=== PATIENT | female | born 1960 | race African-American/Black ===

== ENCOUNTER 2016-07-16 19:58 | Emergency (ER) | payer OTHER ==
[~2016-07-16] VITALS: Ht 154.9 cm; Wt 75.3 kg
[2016-07-16 20:08] VITALS: BP 152/94
[2016-07-16] MEDS ORDERED: DIPHENHYDRAMINE 25 MG CAPSULE PO ONE (20:30)
[2016-07-16] MEDS ORDERED: DEXAMETHASONE 4 MG/ML, 1ML PO ONE (21:00)
[2016-07-16] MEDS ORDERED: DIPHENHYDRAMINE 25 MG CAPSULE ONE (21:40)
[2016-07-16] MEDS ORDERED: DEXAMETHASONE 4 MG TABLET ONE (21:41)
== END 2016-07-16 22:43 | disposition home or self-care (01) ==
LOC: ED 22:37
DX: T78.3XXA Angioneurotic edema, initial encounter (principal); W57.XXXA Bitten or stung by nonvenomous insect and other nonvenomous arthropods, initial encounter; Y93.89 Activity, other specified; Y92.89 Other specified places as the place of occurrence of the external cause; Y99.8 Other external cause status
CPT/HCPCS: 70360; 99283; J1100; Q0163

== ENCOUNTER → 2016-08-08 | Outpatient (CLI) | payer MEDICARE, OTHER | END | disposition home or self-care (01) | LOC: RAD 15:53 | PROVIDERS: ATTEND Nurse Practitioner Family | DX: H92.01 Otalgia, right ear (principal); J32.3 Chronic sphenoidal sinusitis | CPT/HCPCS: 70480 ==